=== PATIENT | male | born 1970 | race Hispanic/Latino ===

== ENCOUNTER 2017-11-14 10:48 | Outpatient (CLI) | payer OTHER ==
[2017-11-14 12:36] LABS: #Eosinphils 0.2 thou/uL (0.0-0.7); #Lymphocytes 1.7 thou/uL (1.20-3.40); #Monocytes 0.5 thou/uL (0.11-0.59); #Neutrophils 3.8 thou/uL (1.40-6.50); %Basophils 0.3 % (0.0-1.0); %Eosinophils 3.7 % (0.0-10.0); %Lymphocytes 27.1 % (21.0-51.0); %Monocytes 8.1 % (0.0-10.0); %Neutrophils 60.8 % (42.0-75.0); Hemoglobin 13.6 g/dL (14.0-18.0); Mean Corpuscular HGB CONC 35.1 g/dL (32.0-36.0); Mean Corpuscular Hemoglobin 33.3 pg (27.0-31.0); Mean Corpuscular Volume 94.9 fl (80.0-94.0); Platelet Count 265 thou/uL (130-400); RBC Distribution Width 10.9 % (11.5-14.5); White Blood Cell (WBC) Count 6.3 thou/uL (4.8-10.8)
[2017-11-14 13:03] LABS: Anion Gap 15 mmol/L (10-20); BUN (Urea Nitrogen) 14 mg/dL (8.9-20.6); Calc. Creatinine Clearance 0 mL/min (70-130); Calcium 9.4 mg/dL (7.8-10.44); Carbon Dioxide 25 mmol/L (22-29); Chloride 104 mmol/L (98-107); Estimated GFR-MDRD Greater than 90; Glucose 84 mg/dL (70-105); Potassium 4.3 mmol/L (3.5-5.1); Sodium 140 mmol/L (136-145)
--- NOTE | 2017-11-15 23:38 | EKG ---
Test Reason : Blood Pressure : / mmHG Vent. Rate : 067 BPM Atrial Rate : 067 BPM P-R Int : 154 ms QRS Dur : 094 ms QT Int : 392 ms P-R-T Axes : 049 041 028 degrees QTc Int : 414 ms Normal sinus rhythm Normal ECG No previous ECGs available Confirmed by Alexandria ANTUNEZ ([id number]) on 11/15/2017 11:37:57 PM Referred By: RITO Confirmed By:Alexandria ANTUNEZ
== END 2017-11-14 10:49 | disposition home or self-care (01) ==
LOC: LABBT 10:48
PROVIDERS: ATTEND Surgery
DX: Z01.810 Encounter for preprocedural cardiovascular examination (principal); Z01.812 Encounter for preprocedural laboratory examination; K40.90 Unilateral inguinal hernia, without obstruction or gangrene, not specified as recurrent
CPT/HCPCS: 80048; 85025; 93005; 93010

== ENCOUNTER 2017-11-18 09:37 | Day surgery (SDC) | payer OTHER ==
[2017-11-14 11:15] VITALS: BMI 29.7
[2017-11-18] MEDS ORDERED: Bupivacaine PF 0.5% 30 ML VIAL ONE (10:43)
[2017-11-18] MEDS ORDERED: Lidocaine 1% w/Epinephrine 1:200K 30 ML VIAL ONE (10:43)
[2017-11-18] MEDS ORDERED: CEFAZOLIN/Water 2 GM/20 ML SYRINGE ONE (11:53)
[2017-11-18] MEDS ORDERED: Midazolam HCl 2 mg/2 ml Vial ONE (11:54)
[2017-11-18] MEDS ORDERED: HYDROmorphone 0.5 MG/0.5 ML SYRINGE ONE (12:01)
[2017-11-18] MEDS ORDERED: HYDROcodone/Acetaminophen 10/325 mg Tablet ONE (14:59)
--- NOTE | 2017-11-18 15:50 | OP ---
PREOPERATIVE DIAGNOSIS: Right inguinal hernia. POSTOPERATIVE DIAGNOSIS: Right inguinal hernia. PROCEDURE: Da Omkar laparoscopic right inguinal hernia repair with mesh, ProGrip. SURGEON: Ian Wagner M.D. ANESTHESIA: General. ESTIMATED BLOOD LOSS: Minimal. COMPLICATIONS: None. SPECIMEN: None. FINDINGS: Right inguinal hernia. TECHNIQUE: The patient was taken to the operating room and placed supine on the table. After sedati on, general anesthetic was obtained, a Funez was placed. Abdomen was shaved, prepped and draped in a sterile fashion. Curved incision made above the umbilicus. Cautery was used to dissect down to the fascia and the abdominal fascia was scored. Abdominal cavity was entered bluntly using a Ceci clam p. A 12-mm Ethicon trocar placed under direct vision and a high-flow pneumoperitoneum was obtained. The patient was placed under Trendelenburg position. Right and left abdominal 8 mm robot trocars we re placed, robot was brought in side dock and all ports were docked to the robot. The peritoneum was taken down in the right groin into the preperitoneal space. The preperitoneal space was fully disse cted to the pubic tubercle medially and to the anterior superior iliac crest laterally. Full iliopec tineal line was exposed. The direct hernia sac was dissected out of the hernia left high up on the p eritoneum. The cord structures were skeletonized revealing a small indirect hernia sac, which was di ssected high back up onto the peritoneum as well. The ProGrip mesh was brought into the sterile fiel d, it was rolled and placed through the right-sided incision. The medial aspect was placed over the pubic tubercle. The mesh was unraveled to fully cover the direct, indirect, and femoral areas. The peritoneum was reapproximated over the top using running Stratafix suture. All port sites were infil trated using local anesthetic. All ports were removed under direct visualization without bleeding. Pneumoperitoneum was let down. PDS was used to close the fascial defect above the umbilicus. All in cisions were irrigated and closed using 4-0 Monocryl and Dermabond. The patient went to recovery in stable condition. All instrument counts, needle counts, and lap counts were correct.
[2017-11-18] MEDS ORDERED: Ondansetron ODT 4 MG TAB ONE (16:41)
== END 2017-11-18 17:18 | disposition home or self-care (01) ==
LOC: SDC 09:37
PROVIDERS: ATTEND Surgery
PROC: 0YU54JZ Supplement Right Inguinal Region with Synthetic Substitute, Percutaneous Endoscopic Approach (ICD-10-PCS; principal; 2017-11-18)
DX: K40.90 Unilateral inguinal hernia, without obstruction or gangrene, not specified as recurrent (principal); E88.09 Other disorders of plasma-protein metabolism, not elsewhere classified; E66.9 Obesity, unspecified; Z68.29 Body mass index [BMI] 29.0-29.9, adult; Z88.0 Allergy status to penicillin; Z88.2 Allergy status to sulfonamides; Z88.8 Allergy status to other drugs, medicaments and biological substances; Z90.49 Acquired absence of other specified parts of digestive tract; Z98.890 Other specified postprocedural states
CPT/HCPCS: J1170; J2250; Q0162; S0020